=== PATIENT | male | born 2000 | race Caucasian/White ===

== ENCOUNTER 2019-05-18 09:59 | Emergency (ER) | payer OTHER ==
[~2019-05-18] VITALS: Ht 175.3 cm; Wt 85.0 kg
[2019-05-18] MEDS ORDERED: NS 1,000 ML IV ONE (11:00)
[2019-05-18 11:40] LABS: BASO % 0.6 % (0.0-1.0); EOS # 0.1 10^3/uL (0.0-0.50); HEMATOCRIT 44.4 % (42.0-52.0); HEMOGLOBIN 15.1 g/dl (13.5-17.5); LYMPH # 1.4 10^3/uL (1.5-6.5); LYMPH % 27.5 % (24.0-44.0); MEAN CORPUSCULAR HEMOGLOBIN 31.3 pg (27.0-33.0); MEAN CORPUSCULAR VOLUME 92.1 fl (80.0-96.0); MONO # 0.4 10^3/uL (0.0-0.8); MONO % 7.9 % (0.0-5.0); NEUTROPHILS # 3.2 10^3/uL (1.8-7.7); NEUTROPHILS % 62.8 % (36.0-66.0); PLATELET COUNT, AUTOMATED 193 10^3/uL (150-450); RED BLOOD COUNT 4.82 10^6/uL (4.30-6.10); WHITE BLOOD COUNT 5.1 10^3/uL (4.0-10.0)
[2019-05-18 12:04] LABS: ALBUMIN 4.2 GM/DL (3.2-5.2); ALT/SGPT 25 U/L (12-78); BILIRUBIN,DIRECT 0.1 MG/DL (0.0-0.2); BILIRUBIN,TOTAL 0.6 MG/DL (0.2-1.0); BLOOD UREA NITROGEN 12 MG/DL (7-18); CALCIUM LEVEL 9.6 MG/DL (8.5-10.1); CARBON DIOXIDE LEVEL 29 MEQ/L (21-32); CHLORIDE LEVEL 106 MEQ/L (98-107); CK-MB VALUE MASS < 1.0 NG/ML (<3.6); CPK CREATINE PHOSPHOKINASE 587 U/L (39-308); CREATININE FOR GFR 0.82 MG/DL (0.70-1.30); GLUCOSE, FASTING 77 MG/DL (70-100); MB/CK RELATIVE INDEX 0.17 (< OR =4); POTASSIUM SERUM 4.5 MEQ/L (3.5-5.1); SODIUM LEVEL 140 MEQ/L (136-145); TOTAL PROTEIN 7.7 GM/DL (6.4-8.2); TROPONIN I < 0.02 NG/ML (< 0.10)
--- NOTE | 2019-05-18 12:08 | REP ---
Chest x-ray: Two views. History: Abdomen pain chest pain. . Comparison study: No comparison study . Findings: The lungs are well inflated and free of infiltrate. The pleural angles are sharp. The heart size is normal. Pulmonary vasculature is not increased. No significant bony abnormality is seen. Impression: Negative chest x-ray. Electronically Signed by Sudhakar Arellano MD 05/18/2019 12:00 P
[2019-05-18 14:25] VITALS: BP 117/56
--- NOTE | 2019-05-18 20:34 | ECGEPIP ---
[facility] - ED Test Date: 2019-05-18 Pat Name: CHAPIS ROJAS Department: Room: - Gender: Male Academic Support Specialist: marco a : 2000 Requested By: MARILUZ Koehler PA-C Order Number: [id number] Reading MD: Franco Quiroz Measurements Intervals [place] Rate: 59 P: WI: 126 QRS: 30 QRSD: 95 T: 37 QT: 382 QTc: 379 Interpretive Statements SINUS BRADYCARDIA SHORT WI INTERVAL NO PRIOR ECG FOR COMPAIRSON Electronically Signed on 05-18-2019 20:33:55 EDT by Franco Quiroz
== END 2019-05-18 15:07 | disposition home or self-care (01) ==
LOC: M ED 09:59
DX: E86.0 Dehydration (principal); R07.89 Other chest pain; R79.89 Other specified abnormal findings of blood chemistry

== ENCOUNTER → 2020-04-18 | Outpatient (CLI) | payer SELFPAY | LOC: M LABSMTC 13:01 | PROVIDERS: ATTEND Family Medicine | DX: Z11.59 Encounter for screening for other viral diseases (principal); Z03.818 Encounter for observation for suspected exposure to other biological agents ruled out | CPT/HCPCS: C9803; U0002 ==